=== PATIENT | female | born 1960 | race Caucasian/White ===

== ENCOUNTER 2024-11-09 18:25 | Emergency (ER) | payer SELFPAY ==
[2024-11-09 18:27] VITALS: BP 176/109
[2024-11-09 19:17] VITALS: BMI 27.9
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
[2024-11-09 19:47] VITALS: BP 150/100
[2024-11-09 20:00] VITALS: BP 159/99
== END 2024-11-09 20:19 | disposition home or self-care (01) ==
LOC: EMR 18:25
PROVIDERS: EMERGENCY PHYSICIAN Student in an Organized Health Care Education/Training Program; FAMILY PHYSICIAN Family Medicine
DX: S20.212A Contusion of left front wall of thorax, initial encounter (principal); S60.212A Contusion of left wrist, initial encounter; S70.01XA Contusion of right hip, initial encounter; V43.52XA Car driver injured in collision with other type car in traffic accident, initial encounter; I10 Essential (primary) hypertension
CPT/HCPCS: 99284; 71111; 73110; 93005